=== PATIENT | female | born 1955 | race Caucasian/White ===

== ENCOUNTER → 2017-01-28 | Outpatient (CLI) | payer OTHER | END | disposition home or self-care (01) | LOC: CFH 15:19 | PROVIDERS: ATTEND Obstetrics & Gynecology Female Pelvic Medicine and Reconstructive Surgery | DX: N83.292 Other ovarian cyst, left side (principal); Z78.0 Asymptomatic menopausal state | CPT/HCPCS: 76830 ==

== ENCOUNTER → 2017-03-22 | Outpatient (CLI) | payer OTHER ==
[~2017-03-22] MED LIST: OMNIPAQUE 350 MG/ML, 100ML BOTTLE ONE
== END | disposition home or self-care (01) ==
LOC: CFH 11:38
PROVIDERS: ATTEND Obstetrics & Gynecology Female Pelvic Medicine and Reconstructive Surgery
DX: N83.202 Unspecified ovarian cyst, left side (principal); N28.1 Cyst of kidney, acquired; K76.0 Fatty (change of) liver, not elsewhere classified
CPT/HCPCS: 74177; Q9967

== ENCOUNTER → 2017-07-19 | Outpatient (CLI) | payer OTHER | END | disposition home or self-care (01) | LOC: CFH 10:52 | PROVIDERS: ATTEND Obstetrics & Gynecology Female Pelvic Medicine and Reconstructive Surgery | DX: D25.9 Leiomyoma of uterus, unspecified (principal); N83.202 Unspecified ovarian cyst, left side | CPT/HCPCS: 76830 ==

== ENCOUNTER 2018-06-24 07:53 | Day surgery (SDC) | payer MEDICARE ==
[~2018-06-24] VITALS: Ht 157.5 cm; Wt 104.5 kg
[2018-06-24] MEDS ORDERED: LACTATED RINGERS 1,000 ML IV SCH (08:32)
[2018-06-24] MEDS ORDERED: CALCIUM PO (08:46)
[2018-06-24] MEDS ORDERED: FLUT100B PO (08:46)
[2018-06-24] MEDS ORDERED: PANT40TA3 PO (08:46)
[2018-06-24] MEDS ORDERED: ATEN25TA PO (08:46)
[2018-06-24] MEDS ORDERED: MONT10TA6 PO (08:46)
[2018-06-24] MEDS ORDERED: VIT D PO (08:46)
[2018-06-24] MEDS ORDERED: ALEN70TA3 PO (08:46)
[2018-06-24] MEDS ORDERED: LEVO112T4 PO (08:46)
[2018-06-24] MEDS ORDERED: LOSA100T14 PO (08:46)
[2018-06-24] MEDS ORDERED: LEVO125T5 PO (08:46)
[2018-06-24 08:51] VITALS: BP 161/74
[2018-06-24] MEDS ORDERED: LIDOCAINE-MPF 1%, 2ML INFIL ONE (09:00)
[2018-06-24 09:20] LABS: ALBUMIN 3.2 g/dL (3.4-5.0); ANION GAP 6 mmol/L (5-15); CALCIUM 8.7 mg/dL (8.5-10.1); CHLORIDE 109 mmol/L (98-107)
[2018-06-24 09:24] LABS: ALANINE AMINOTRANSFERASE 18 U/L (12-78); ALKALINE PHOSPHATASE 77 U/L (45-117); BILIRUBIN,TOTAL 0.4 mg/dL (0.2-1.0); CREATININE 0.79 mg/dL (0.55-1.02); TOTAL PROTEIN 7.4 g/dL (6.4-8.2)
[2018-06-24] MEDS ORDERED: CEFAZOLIN 1,000 MG ONE (10:25)
[2018-06-24] MEDS ORDERED: PROPOFOL 10 MG/ML, 50ML ONE (10:25)
[2018-06-24] MEDS ORDERED: ONDANSETRON ODT 8 MG PO PRN (11:30)
[2018-06-24] MEDS ORDERED: FENTANYL PF 100 MCG/2ML IV PRN (11:30)
[2018-06-24] MEDS ORDERED: DIAZEPAM 5 MG/ML, 2ML IVPush PRN (11:30)
[2018-06-24] MEDS ORDERED: DIPHENHYDRAMINE 50 MG/ML, 1ML IM PRN (11:30)
[2018-06-24] MEDS ORDERED: PROMETHAZINE 25 MG/ML, 1ML IV PRN (11:30)
[2018-06-24] MEDS ORDERED: EPHEDRINE 50 MG/ML, 1ML IM PRN (11:30)
[2018-06-24] MEDS ORDERED: OXYcodone 5 MG/5 ML ORAL.SOL UDC PO PRN (11:30)
[2018-06-24] MEDS ORDERED: ONDANSETRON 2MG/ML, 2ML IV PRN (11:30)
[2018-06-24] MEDS ORDERED: MIDAZOLAM 1 MG/ML, 2ML IV PRN (11:30)
== END 2018-06-24 12:40 | disposition home or self-care (01) ==
LOC: OUT 07:53
PROVIDERS: ATTEND Internal Medicine
DX: K29.50 Unspecified chronic gastritis without bleeding (principal); K86.2 Cyst of pancreas; K31.7 Polyp of stomach and duodenum; K21.9 Gastro-esophageal reflux disease without esophagitis; I10 Essential (primary) hypertension; E03.9 Hypothyroidism, unspecified; Z80.0 Family history of malignant neoplasm of digestive organs; J45.909 Unspecified asthma, uncomplicated; Z90.49 Acquired absence of other specified parts of digestive tract; Z90.721 Acquired absence of ovaries, unilateral; Z79.899 Other long term (current) drug therapy
CPT/HCPCS: 36415; 43239; 43242; 80053; 82150; 82378; 88173; 88305; 93005; J0690; J2704

== ENCOUNTER → 2019-08-03 | Outpatient (CLI) | payer MEDICARE ==
[~2019-08-03] MED LIST changes: +ALEN70TA3 PO; +ATEN25TA PO; +CALCIUM PO; +FLUT100B PO; +FLUT1AER INH; +LEVO112T4 PO; +LEVO125T5 PO; +LEVO137T3 PO; +LOSA100T14 PO; +MONT10TA6 PO; -OMNIPAQUE 350 MG/ML, 100ML BOTTLE ONE; +PANT40TA3 PO; +VIT D PO
[2019-08-03 11:50] LABS: ALANINE AMINOTRANSFERASE 18 U/L (12-78); ALBUMIN 3.2 g/dL (3.4-5.0); ANION GAP 9 mmol/L (5-15); CALCIUM 9.1 mg/dL (8.5-10.1); CHLORIDE 106 mmol/L (98-107); CREATININE 0.81 mg/dL (0.55-1.02)
[2019-08-03 11:52] LABS: ALKALINE PHOSPHATASE 83 U/L (45-117); BILIRUBIN,TOTAL 0.4 mg/dL (0.2-1.0)
== END | disposition home or self-care (01) ==
LOC: STAR 10:15
PROVIDERS: ATTEND Internal Medicine Critical Care Medicine
DX: Z01.818 Encounter for other preprocedural examination (principal); R91.1 Solitary pulmonary nodule
CPT/HCPCS: 36415; 80053; 93005

== ENCOUNTER 2019-08-07 07:41 | Day surgery (SDC) | payer MEDICARE ==
[~2019-08-07] VITALS: Ht 157.5 cm; Wt 102.4 kg
[2019-08-07] MEDS ORDERED: LACTATED RINGERS 1,000 ML IV SCH (08:17)
[2019-08-07 08:18] VITALS: BP 166/78
[2019-08-07] MEDS ORDERED: CHLORHEXIDINE 15 ML UDC MM ONE (08:30)
[2019-08-07 08:53] LABS: BASOPHILS # (AUTO) 0.02 x10^3/uL (0-0.1); BASOPHILS % (AUTO) 0 % (0-1); EOSINOPHILS # (AUTO) 0.05 x10^3/uL (0-0.4); EOSINOPHILS % (AUTO) 1 % (1-7); LYMPHOCYTES % (AUTO) 11 % (22-44); MD NO; MEAN CORPUSCULAR HEMOGLOBIN 26.1 pg (27.0-34.8); MEAN CORPUSCULAR HGB CONC 32.3 g/dL (32.4-35.8); MEAN CORPUSCULAR VOLUME 80.8 fL (80-100); MEAN PLATELET VOLUME 7.3 fL (7.4-10.4); MONOCYTES # (AUTO) 0.48 x10^3/uL (0.2-0.8); MONOCYTES % (AUTO) 5 % (2-9); NEUTROPHILS # (AUTO) 7.28 x10^3/uL (1.8-6.8); NEUTROPHILS % (AUTO) 82 % (42-75); PLATELET COUNT 426 x10^3/uL (130-400); RED BLOOD COUNT 4.73 x10^6/uL (3.82-5.3)
[2019-08-07 09:03] LABS: INTERNATIONAL NORMALIZED RATIO 0.93 (0.93-1.1); PROTHROMBIN TIME 9.8 Seconds (9.6-11.5)
[2019-08-07] MEDS ORDERED: MEPERIDINE/PF 25MG/0.5ML IVPush PRN (10:30)
[2019-08-07] MEDS ORDERED: OXYcodone 5 MG/5 ML ORAL.SOL UDC PO PRN (10:30)
[2019-08-07] MEDS ORDERED: PROMETHAZINE 25 MG/ML, 1ML IVPush PRN (10:30)
[2019-08-07] MEDS ORDERED: LABETALOL 5MG/ML, 20ML IV PRN (10:30)
[2019-08-07] MEDS ORDERED: HALOPERIDOL 5 MG/ML IV PRN (10:30)
[2019-08-07] MEDS ORDERED: hydrALAzine 20 MG/ML, 1ML IV PRN (10:30)
[2019-08-07] MEDS ORDERED: FENTANYL PF 100 MCG/2ML IV PRN (10:30)
[2019-08-07] MEDS ORDERED: HYDROmorphone 1 MG/ML, 1ML INJ IVPush PRN (10:30)
[2019-08-07] MEDS ORDERED: FENTANYL PF 250 MCG/5ML ONE (10:38)
[2019-08-07] MEDS ORDERED: GLYCOPYRROLATE 0.2MG/1ML, 5ML ONE (11:59)
[2019-08-07] MEDS ORDERED: DEXAMETHASONE 4 MG/ML, 1ML ONE (11:59)
[2019-08-07] MEDS ORDERED: SUCCINYLCHOLINE 20 MG/ML, 10ML ONE (11:59)
[2019-08-07] MEDS ORDERED: CEFAZOLIN 1,000 MG ONE (11:59)
[2019-08-07] MEDS ORDERED: NEOSTIGMINE 1 MG/ML, 10ML ONE (11:59)
[2019-08-07] MEDS ORDERED: ONDANSETRON 2MG/ML, 2ML ONE (11:59)
[2019-08-07] MEDS ORDERED: PROPOFOL 10 MG/ML, 20ML ONE (11:59)
[2019-08-07] MEDS ORDERED: ROCURONIUM 10MG/ML,5ML ONE (11:59)
[2019-08-07] MEDS ORDERED: ALBUTEROL/IPRATROPIUM 2.5MG/0.5MG, 3 ML ONE (12:46)
[2019-08-07] MEDS ORDERED: ALBUTEROL SULFATE 2.5 MG/3 ML NPPB PRN (13:00)
== END 2019-08-07 15:20 | disposition home or self-care (01) ==
LOC: OUT 07:41
PROVIDERS: ATTEND Internal Medicine Critical Care Medicine
DX: R91.1 Solitary pulmonary nodule (principal); Z11.59 Encounter for screening for other viral diseases; J45.909 Unspecified asthma, uncomplicated; I10 Essential (primary) hypertension; E78.5 Hyperlipidemia, unspecified; E66.9 Obesity, unspecified; E05.00 Thyrotoxicosis with diffuse goiter without thyrotoxic crisis or storm; Z88.8 Allergy status to other drugs, medicaments and biological substances; Z68.41 Body mass index [BMI] 40.0-44.9, adult; Z79.899 Other long term (current) drug therapy; Z98.890 Other specified postprocedural states; Z82.49 Family history of ischemic heart disease and other diseases of the circulatory system; Z82.5 Family history of asthma and other chronic lower respiratory diseases
CPT/HCPCS: 31624; 31629; 31653; 36415; 71045; 85025; 85610; 85730; 87070; 87102; 87116; 87205; 87206; 87635; 88172; 88173; 88177; 88305; 94640; J0330; J1100; J2405; J2704; J3010; J7120; J7613; J0690; J2710